=== PATIENT | male | born 1965 | race Caucasian/White ===

== ENCOUNTER 2021-01-06 17:57 | Emergency (ER) | payer OTHER ==
[~2021-01-06 17:57] MED LIST: ERYTHROMYCIN OP1 GM OP
[2021-01-07] MEDS ORDERED: CATAPRES 0.1MG0.1 MG PO (02:13)
== END 2021-01-07 02:21 | disposition home or self-care (01) ==
LOC: ER1 17:57
DX: S09.93XA Unspecified injury of face, initial encounter (principal); H53.2 Diplopia; W22.8XXA Striking against or struck by other objects, initial encounter; I10 Essential (primary) hypertension; F17.210 Nicotine dependence, cigarettes, uncomplicated
CPT/HCPCS: 70450; 70486; 71045; 72125; 99284

== ENCOUNTER 2021-07-10 21:47 | Emergency (ER) | payer OTHER ==
[~2021-07-10 21:47] MED LIST changes: +CATAPRES 0.1MG0.1 MG PO
== END 2021-07-10 23:20 | disposition left against medical advice (07) ==
LOC: ER1 21:47
DX: R07.9 Chest pain, unspecified (principal); I10 Essential (primary) hypertension; F17.210 Nicotine dependence, cigarettes, uncomplicated
CPT/HCPCS: 99283